=== PATIENT | female | born 1995 | race Caucasian/White ===

== ENCOUNTER 2017-02-10 21:21 | Emergency (ER) | payer OTHER ==
[~2017-02-10] VITALS: Ht 170.2 cm; Wt 57.0 kg
[~2017-02-10 21:21] MED LIST: AMOX500T PO; AUGM875T PO; PRED20 PO; PRED50 PO
[2017-02-10 21:23] VITALS: BP 138/69; PULSE 75; RESP 20; TEMP 97.8; O2SAT 96
[2017-02-10] MEDS ORDERED: SODIUM CHLOR 0.9% 1000 ML INJ 1,000 ML IV SCH (22:18)
--- NOTE | 2017-02-10 22:25 | PD ---
HPI Chief Complaint: Abdominal Pain Time Seen by Provider: 22:21 Travel History International Travel<30 days: No Contact w/Intl Traveler<30days: No Traveled to known affect area: No History of Present Illness HPI 21-year-old female that presents to the ED for evaluation of right lower quadrant abdominal pain. Patient reports that she's been having this pain since yesterday but yesterday wasn't as well as today. Per patient the pain today was more severe 2 hours before coming. Per patient she was at work when the pain became more unbearable and she started vomiting. Per patient she denies and denies any vaginal discharge. She states that the pain stays mainly in the right lower quadrant but does go up the right upper quadrant. She denies any chest pain or shortness of breath. States that she has sweats and chills but no fever. States that she had a hernia surgery when she was 12 but no other surgeries since. She denies any blood thinners. Pain is 8 out of 10 and is reproducible with touch. Per patient and movement makes it worse as well. She denies any trauma. No other medical problems. PFSH Past Medical History Medical History: Denies Significant Hx Influenza Vaccination: No ?: Not LMP: 01/23/17 Past Surgical History Other Surgery: Yes (hernia repair ) Social History Alcohol Use: Yes Tobacco Use: Yes Substance Use: Yes ([facility] ) Allergies-Medications (Allergen,Severity, Reaction): Coded Allergies: No Known Allergies (Unverified , 02/10/17) Reported Meds & Prescriptions Reported Meds & Active Scripts Active No Active Prescriptions or Reported Medications Review of Systems General / Constitutional: Positive: Chills, No: Fever, Weight Gain, Weight Loss, Other Eyes: No: Diploplia, Blurred Vision, Photophobia, Drainage, Redness, Foreign Body Sensation, Pain, Tearing, Blind Spots, Visual changes, Blindness, Other HENT: No: Headaches, Vertigo, Lightheadedness, Sore Throat, Rhinitis, Rhinorrhea, Congestion, Nosebleed, Neck Stiffness, Neck Pain, Masses, Gingival Bleeding, Dental Difficulties, Ear Discharge, Earache, Other Cardiovascular: No: Chest Pain or Discomfort, Palpitations, Irregular Rhythm, Tachycardia, Diaphoresis, Syncope, Dyspnea on exertion, Varicosities, Edema, Cyanosis, Varicosities, Phlebitis, Claudication, Other Respiratory: No: Cough, Shortness of Breath, Wheezing, Sneezing, Orthopnea, Hemoptysis, Stridor, Night Sweats, Pleuritic Pain, Other Gastrointestinal: Positive: Nausea, Vomiting, Abdominal Pain, No: Diarrhea, Hematemesis, Hematochezia, Constipation, Changes in Bowel Habits, Indigestion, Dysphagia, Loss of Appetite, Other Genitourinary: No: Urgency, Frequency, Dysuria, Nocturia, Hematuria, Decreased Urinary Output, Oliguria, Hesitancy, Dribbling, Incontinence, Pelvic Pain, Flank Pain, Dyspareunia, Discharge, Dysmenorrhea, Menorrhagia, Metorrhagia, Vaginal Bleeding, Other Musculoskeletal: No: Myalgias, Arthralgias, Limited ROM, Weakness, Cramping, Edema, Pain, Atrophy, Other Skin: No Rash, No Itching, No Dryness, No Lumps, No Hives, No Change in Pigmentation, No Change in nails, No Alopecia, No Lesions, No Breast Lumps, No Breast Tenderness, No Breast Swelling, No Other Neurologic: No: Weakness, Dizziness, Syncope, Focal Abnormalities, Coordination Problem, Tremor, Ataxia, Headache, Change in Mentation, Slurred Speech, Paresthesia, Incontinence, Seizures, Sensory Disturbance, Other Psychiatric: No: Anxiety, Depression, Suicidal Ideations, Disorder of Thought, Mood Disorder, Substance Abuse, Homicidal Ideation, Other Endocrine: No: Heat Intolerance, Cold Intolerance, Polyuria, Polydipsia, Other Hematologic/Lymphatic: No: Easy Bruising, Lymph Node Enlargement, Other Physical Exam Narrative GENERAL: SKIN: Warm and dry. HEAD: Atraumatic. Normocephalic. EYES: Pupils equal and round. No scleral icterus. No injection or drainage. ENT: No nasal bleeding or discharge. Mucous membranes pink and moist. Tongue is midline. No uvula deviation. NECK: Trachea midline. No JVD. CARDIOVASCULAR: Regular rate and rhythm. No murmurs, S3, S4. RESPIRATORY: No accessory muscle use. Clear to auscultation. Breath sounds equal bilaterally. GASTROINTESTINAL: Abdomen soft, very tender to palpation in the right lower quadrant. Patient has reproducible pain with deep palpation on the left lower quadrant on the right lower quadrant. Any movements of the right leg causes pain on the right lower quadrant, nondistended. Hepatic and splenic margins not palpable. MUSCULOSKELETAL: Extremities without clubbing, cyanosis, or edema. No obvious deformities. Full range of motion of the upper and lower extremities bilaterally. 2+ pulses bilaterally. NEUROLOGICAL: Awake and alert. No obvious cranial nerve deficits. Motor grossly within normal limits. Five out of 5 muscle strength in the arms and legs. Normal speech. PSYCHIATRIC: Appropriate mood and affect; insight and judgment normal. Data Data Last Documented VS Vital Signs Date Time Temp Pulse Resp B/P Pulse Ox O2 Delivery O2 Flow Rate FiO2 02/10/17 21:23 97.8 75 20 138/69 96 Room Air Orders Complete Blood Count With Diff (02/10/17 22:18) Comprehensive Metabolic Panel (02/10/17 22:18) Lipase (02/10/17 22:18) Lactic Acid (02/10/17 22:18) Urinalysis - C+S If Indicated (02/10/17 22:18) Ct Abd/Pel W Iv Contrast(Rout) (02/10/17 22:18) Iv Access Insert/Monitor (02/10/17 22:18) NPO (02/10/17 22:18) Morphine Inj (Morphine Inj) (02/10/17 22:30) Ondansetron Inj (Zofran Inj) (02/10/17 22:30) Sodium Chlor 0.9% 1000 Ml Inj (Ns 1000 M (02/10/17 22:18) Sodium Chloride 0.9% Flush (Ns Flush) (02/10/17 22:30) Ed Poc Ultrasound (02/10/17 22:18) MDM Medical Decision Making Medical Screen Exam Complete: Yes Emergency Medical Condition: Yes Medical Record Reviewed: Yes Differential Diagnosis Appendicitis versus problem versus acute abdomen versus hernia versus gastroenteritis versus ovarian issue Narrative Course 21-year-old female that presents to the ED for evaluation of right lower quadrant pain. Patient was properly examined and was found to have signs and symptoms consistent what appears to be appendicitis. This time labs and imaging recommended. Case will be signed out to my attending Dr. Ansari pending labs and imaging and disposition. Scripts No Active Prescriptions or Reported Meds Steve Vieira Feb 10, 2017 22:25
[2017-02-10] MEDS ORDERED: MORPHINE SULFATE 4 MG/ML INJ IV PUSH ONE (22:30)
[2017-02-10] MEDS ORDERED: SODIUM CHLORIDE 0.9% FLUSH 10 ML FLUSH IV FLUSH PRN (22:30)
[2017-02-10] MEDS ORDERED: ONDANSETRON HCL 4 MG/2 ML VIAL IVP ONE (22:30)
[2017-02-10 23:42] LABS: BASOPHIL % 0.4 % (0.0-2.0); EOSINOPHIL # 0.1 TH/MM3 (0-0.4); EOSINOPHIL % 0.8 % (0.0-4.0); HEMATOCRIT 36.9 % (35.0-46.0); HEMO FLAGS DIFF FINAL; LYMPH % 23.7 % (9.0-44.0); LYMPHOCYTE # 1.8 TH/MM3 (1.0-4.8); MEAN CELL VOLUME 87.3 FL (80.0-100.0); MEAN CORPUSCULAR HEMOGLOBIN 30.1 PG (27.0-34.0); MEAN CORPUSCULAR HGB CONC 34.4 % (32.0-36.0); MONO % 7.1 % (0.0-8.0); PLATELET COUNT 181 TH/MM3 (150-450); RED BLOOD COUNT 4.23 MIL/MM3 (4.00-5.30); RED CELL DISTRIBUTION WIDTH 12.6 % (11.6-17.2); WHITE BLOOD COUNT 7.4 TH/MM3 (4.0-11.0)
[2017-02-10] MEDS ORDERED: IOHEXOL 350 MG/ML 10 ML VIAL (for RAD DIAG) IV ONE (23:45)
[2017-02-10 23:49] LABS: ALT (GPT) 13 U/L (9-42); ANION GAP 9 MEQ/L (5-15); AST (GOT) 10 U/L (16-38); BICARBONATE 22.9 MEQ/L (21.0-32.0); BLOOD UREA NITROGEN 13 MG/DL (7-18); CHLORIDE 109 MEQ/L (98-107); GLOMERULAR FILTRATION RATE 150 ML/MIN (>89); POTASSIUM 3.8 MEQ/L (3.5-5.1); SODIUM (NA) 141 MEQ/L (136-145)
[2017-02-10 23:51] LABS: ALKALINE PHOSPHATASE 47 U/L (45-117); TOTAL BILIRUBIN ADULT 0.4 MG/DL (0.2-1.0)
--- NOTE | 2017-02-11 00:02 | RADRPT ---
EXAM DATE/TIME: 02/10/2017 23:42 [facility] COMPARISON: No previous studies available for comparison. INDICATIONS : Right lower quadrant pain with nausea and vomiting. IV CONTRAST: 92 cc Omnipaque 350 (iohexol) IV ORAL CONTRAST: No oral contrast ingested. RADIATION DOSE: 4.98 CTDIvol (mGy) MEDICAL HISTORY : Hernia. SURGICAL HISTORY : Hernia repair. ENCOUNTER: Initial ACUITY: 1 day PAIN SCALE: 4/10 LOCATION: Right lower quadrant TECHNIQUE: Volumetric scanning of the abdomen and pelvis was performed. Using automated exposure control and ad justment of the mA and/or kV according to patient size, radiation dose was kept as low as reasonably achievable to obtain optimal diagnostic quality images. FINDINGS: LOWER LUNGS: The visualized lower lungs are clear. LIVER: Homogeneous density without lesion. There is no dilation of the biliary tree. No calcified gallston es. SPLEEN: Normal size without lesion. PANCREAS: Within normal limits. KIDNEYS: Normal in size and shape. There is no mass, stone or hydronephrosis. A 1 cm simple cyst is seen invo lving the upper pole of the right kidney. ADRENAL GLANDS: Within normal limits. VASCULAR: There is no aortic aneurysm. 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 BOWEL/MESENTERY: The stomach, small bowel, and colon demonstrate no acute abnormality. There is no free intraperitone al air or fluid. Appendix is normal by CT criteria. ABDOMINAL WALL: Within normal limits. RETROPERITONEUM: There is no lymphadenopathy. BLADDER: No wall thickening or mass. REPRODUCTIVE: A 1.9 cm cystic structure is seen within the right adnexa. This is presumably ovarian in nature. Uter us is anteverted. No free fluid. INGUINAL: There is no lymphadenopathy or hernia. MUSCULOSKELETAL: Within normal limits for patient age. CONCLUSION: 1. 1.9 cm right adnexal cyst which is presumably ovarian in nature. Otherwise, unremarkable exam. 2. 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 Harley Steele Jr., MD on February 10, 2017 at 23:57 Board Certified Radiologist. This report was verified electronically.
[2017-02-11 00:56] LABS: BLOOD, URINE NEG (NEG); COMMENT (UR) CULT NOT INDICATED; CULTURE IF INDICATED CULT NOT INDICATED; GLUCOSE,URINE NEG (NEG); KETONE, URINE 40 mg/dL (NEG); MUCUS URINE FEW /lpf (OCC); NITRITE,URINE NEG (NEG); SQUAMOUS EPITHELIAL CELL URINE 5 /hpf (0-5); URINE COLOR LIGHT-YELLOW (YELLW/STRAW)
[2017-02-11] MEDS ORDERED: IBUP-988 PO (01:01)
[2017-02-11] MEDS ORDERED: HYDR-3533 PO (01:01)
--- NOTE | 2017-02-11 02:57 | PD ---
Data Data Last Documented VS Vital Signs Date Time Temp Pulse Resp B/P Pulse Ox O2 Delivery O2 Flow Rate FiO2 02/10/17 21:23 97.8 75 20 138/69 96 Room Air Orders Complete Blood Count With Diff (02/10/17 22:18) Comprehensive Metabolic Panel (02/10/17 22:18) Lipase (02/10/17 22:18) Lactic Acid (02/10/17 22:18) Urinalysis - C+S If Indicated (02/10/17 22:18) Ct Abd/Pel W Iv Contrast(Rout) (02/10/17 22:18) Iv Access Insert/Monitor (02/10/17 22:18) NPO (02/10/17 22:18) Morphine Inj (Morphine Inj) (02/10/17 22:30) Ondansetron Inj (Zofran Inj) (02/10/17 22:30) Sodium Chlor 0.9% 1000 Ml Inj (Ns 1000 M (02/10/17 22:18) Sodium Chloride 0.9% Flush (Ns Flush) (02/10/17 22:30) Ed Poc Ultrasound (02/10/17 22:18) Iohexol 350 Inj (Omnipaque 350 Inj) (02/10/17 23:45) Labs Laboratory Tests Test 02/10/17 02/10/17 02/11/17 22:30 23:00 00:40 White Blood Count 7.4 TH/MM3 Red Blood Count 4.23 MIL/MM3 Hemoglobin 12.7 GM/DL Hematocrit 36.9 % Mean Corpuscular Volume 87.3 FL Mean Corpuscular Hemoglobin 30.1 PG Mean Corpuscular Hemoglobin 34.4 % Concent Red Cell Distribution Width 12.6 % Platelet Count 181 TH/MM3 Mean Platelet Volume 10.3 FL Neutrophils (%) (Auto) 68.0 % Lymphocytes (%) (Auto) 23.7 % Monocytes (%) (Auto) 7.1 % Eosinophils (%) (Auto) 0.8 % Basophils (%) (Auto) 0.4 % Neutrophils # (Auto) 5.0 TH/MM3 Lymphocytes # (Auto) 1.8 TH/MM3 Monocytes # (Auto) 0.5 TH/MM3 Eosinophils # (Auto) 0.1 TH/MM3 Basophils # (Auto) 0.0 TH/MM3 CBC Comment DIFF FINAL Differential Comment Sodium Level 141 MEQ/L Potassium Level 3.8 MEQ/L Chloride Level 109 MEQ/L Carbon Dioxide Level 22.9 MEQ/L Anion Gap 9 MEQ/L Blood Urea Nitrogen 13 MG/DL Creatinine 0.52 MG/DL Estimat Glomerular Filtration 150 ML/MIN Rate Random Glucose 83 MG/DL Calcium Level 9.0 MG/DL Total Bilirubin 0.4 MG/DL Aspartate Amino Transf 10 U/L (AST/SGOT) Alanine Aminotransferase 13 U/L (ALT/SGPT) Alkaline Phosphatase 47 U/L Total Protein 7.0 GM/DL Albumin 4.0 GM/DL Lipase 108 U/L Lactic Acid Level 0.8 mmol/L Urine Color LIGHT-YELLOW Urine Turbidity CLEAR Urine pH 6.0 Urine Specific [place] GREATER THAN 1.050 Urine Protein TRACE mg/dL Urine Glucose (UA) NEG mg/dL Urine Ketones 40 mg/dL Urine Occult Blood NEG Urine Nitrite NEG Urine Bilirubin NEG Urine Urobilinogen LESS THAN 2.0 MG/DL Urine Leukocyte Esterase NEG Urine RBC 2 /hpf Urine WBC 2 /hpf Urine Squamous Epithelial 5 /hpf Cells Urine Mucus FEW /lpf Microscopic Urinalysis Comment CULT NOT INDICATED MDM Medical Record Reviewed: Yes Supervised Visit with SONIA: Yes Narrative Course I, Dr. Ansari, have reviewed the advance practice practitioner's documentation and am in agreement unless otherwise noted below, met with the patient face to face, made the diagnosis, and the medical decision making was done by me. *My assessment and Findings: CBC & BMP Diagram 02/10/17 22:30 LFTs and lipase normal Lactic acid 0.8 Urinalysis no UTI Last 24 hours Impressions Abdomen/Pelvis CT 02/10/17 [id number] Signed Impressions: Service Date/Time: Friday, February 10, 2017 23:42 - CONCLUSION: 1. 1.9 cm right adnexal cyst which is presumably ovarian in nature. Otherwise, unremarkable exam. 2. 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 Harley Steele Jr., MD The patient was discharged during downtime in this chart was completed retroactively. She had tenderness in the periumbilical distribution. Her workup is reassuring. There is a right adnexal cyst and the need for subsequent follow-up/additional imaging discussed. The patient and the significant other demonstrated understanding. The on-call hr assistant/ maintenance dispatcher contact information was provided and the patient stated she intends to follow up. In any case acute abdominal pelvic pathology is less concerning this scenario. Return precautions were discussed. Patient reassured. She is ready for discharge. Diagnosis Primary Impression: Abdominal pain Qualified Code: R10.33 - Periumbilical abdominal pain Additional Impression: Right ovarian cyst Referrals: Iris Azar MD 2 days Additional Instruction: You have a choice when it comes to health care, and we are glad that you chose [facility]. Hopefully, we have met your expectations on today's visit. You are welcome to return to [facility] at any time, as we are committed to meeting the health care needs of our community. Med/Other Pt SpecificInfo: Prescription(s) given Scripts Hydrocodone-Acetaminophen (Lortab)5-325 Mg Tab1-2 Tab PO Q6H PRN (PAIN SCALE 6 TO 10) #20 TAB Ref 0 Prov:Carlos Ansari MD 02/11/17 Ibuprofen (Advil)200 Mg [id number] Mg PO Q8H PRN (PAIN SCALE 6 TO 10) #20 TAB Ref 0 Prov:Carlos Ansari MD 02/11/17 Disposition: DISCHARGE HOME Condition: Stable Carlos Ansari MD Feb 11, 2017 02:57
== END 2017-02-11 03:04 | disposition home or self-care (01) ==
LOC: NEPE 21:21
DX: R10.33 Periumbilical pain (principal); N83.201 Unspecified ovarian cyst, right side; R11.10 Vomiting, unspecified
CPT/HCPCS: 74177; 80053; 81001; 83605; 83690; 85025; 96374; 96375; 99284; J2270; J2405; J7030; Q9967